=== PATIENT | male | born 1935 | race Caucasian/White ===

== ENCOUNTER 2018-02-23 06:01 | Day surgery (SDC) | payer MEDICARE, BC ==
[2018-02-22 11:50] LABS: BASOPHILS % (AUTO) 0.6 % (0-1); EOSINOPHILS # (AUTO) 0.1 X10'3 (0-0.9); EOSINOPHILS % (AUTO) 2.2 % (0-6); HEMOGLOBIN 12.8 g/dl (14.0-17.9); LYMPHOCYTES % (AUTO) 17.5 % (21-51); MEAN CORPUSCULAR HEMOGLOBIN 31.9 PG (27.0-31.0); MEAN CORPUSCULAR HGB CONC 34.6 % (33.0-36.5); MEAN CORPUSCULAR VOLUME 92.2 FL (78-98); MEAN PLATELET VOLUME 7.6 FL (7.4-10.4); MONOCYTES # (AUTO) 0.4 X10'3 (0-0.9); MONOCYTES % (AUTO) 6.9 % (2-12); NEUTROPHILS % (AUTO) 72.8 % (42-75); PLATELET COUNT 232 X10'3 (140-440); RED BLOOD COUNT 4.02 X10'6 (4.70-6.10); WHITE BLOOD COUNT 5.5 X10'3 (4.5-11.0)
[2018-02-22 11:59] LABS: ALBUMIN 3.3 G/DL (3.4-5.0); ANION GAP 8 (8-16); BLOOD UREA NITROGEN 49 MG/DL (7-18); BUN/CREATININE RATIO 34.8 (5.4-32.0); CALCIUM 9.4 MG/DL (8.5-10.1); CHLORIDE 109 MMOL/L (99-107); CREATININE 1.41 MG/DL (0.60-1.10); GLUCOSE 62 MG/DL (70-104); PARTIAL THROMBOPLASTIN TIME 26 SECONDS (22-32); PROTHROMBIN TIME 10.3 SECONDS (9.0-12.0); SODIUM 145 MMOL/L (135-145); TOTAL CARBON DIOXIDE 28.2 MMOL/L (24-32); eGFR 48 ML/MIN
[2018-02-23] VITALS (12 sets, daily range): BP systolic 105–157; BP diastolic 57–95
[~2018-02-23 06:01] MED LIST: AMLO5TAB16 PO; ASPI-1265 PO; ATRNS; CALC0.253 PO; CLOP75TA35 PO; ESOM40CA30 PO; EYE PO; GLIM2TAB2 PO; GLIM4TAB PO; HUM7525 SQ; Hydralazine Hcl PO; INSU100V12 SQ; LEVO75TA PO; LOSA25TA96 PO; OMEG1CAP2 PO; SODI15DR6 RIGHTEYE; [UNRECOGNIZED DRUG - OTHER] PO; calcium citrate PO
[2018-02-23] MEDS ORDERED: CLOP75TA15 PO (06:23)
[2018-02-23] MEDS ORDERED: ASPI-1264 PO (06:23)
[2018-02-23] MEDS ORDERED: GUAI600T45 PO (06:23)
[2018-02-23] MEDS ORDERED: MULT-1085 PO (06:23)
[2018-02-23] MEDS ORDERED: VIT1CAPS9 PO (06:23)
[2018-02-23] MEDS ORDERED: RANI150T44 PO (06:23)
[2018-02-23] MEDS ORDERED: diphenhydrAMINE 25mg capsule PO PRN (06:25)
[2018-02-23] MEDS ORDERED: LORazepam 0.5 MG tablet PO PRN (06:25)
[2018-02-23] MEDS ORDERED: normal saline 1000ml 1,000 ML IV SCH ×2 (06:25→06:35)
[2018-02-23] MEDS ORDERED: sod bicarbonate 150mEq in D5W 1,150 ML IV SCH (06:30)
[2018-02-23] MEDS ORDERED: iohexol 350 MG/ML 50ML vial IV ONE (07:47)
[2018-02-23] MEDS ORDERED: LIDOcaine 1% 30ml preserv. free vial ONE (07:47)
[2018-02-23] MEDS ORDERED: iohexol 350MG/ML 100ml bottle IV ONE (07:48)
[2018-02-23] MEDS ORDERED: heparin 1,000unit/ml 10ml vial 10 ML ONE (07:53)
[2018-02-23] MEDS ORDERED: nitroGLYCERIN-Tridil 50MG/D5W 250 ML IV ONE (07:53)
[2018-02-23] MEDS ORDERED: acetylcysteine 200 MG/ml 4ml vial PO SCH (08:00)
[2018-02-23] MEDS ORDERED: fentaNYL/PF 50MCG/1 ML 2ML syringe ONE (08:11)
[2018-02-23] MEDS ORDERED: midazolam 2 mg/2 ml injection ONE (08:12)
[2018-02-23] MEDS ORDERED: hydrALAZINE 20mg/ml inj. IV ONE (09:05)
[2018-02-23] MEDS ORDERED: furosemide 20 MG/2 ML vial IV ONE (09:50)
[2018-02-23] MEDS ORDERED: potassium Cl 20 mEq SR tablet PO ONE (09:50)
[2018-02-23] MEDS ORDERED: hydrALAZINE 20mg/ml inj. IV PRN (09:50)
[2018-02-23] MEDS: MORPHINE 2MG in 2ml NS syringe IV PRN ×2 (10:22→13:36)
[2018-02-23 17:06] LABS: ISTAT Hct MIX 34 %PCV (42-52); ISTAT O2 SATURATION MIX VENOUS 71 % (60-80); ISTAT SOURCE MIX
[2018-02-23 17:06] LABS: ISTAT HGB ART 11.6 g/dl (14.0-18.0); ISTAT Hct ART 34 %PCV (42-52); ISTAT O2 SATURATION ARTERIAL 99 % (95-98); ISTAT SOURCE ART
== END 2018-02-23 16:00 | disposition home or self-care (01) ==
LOC: SSTAY O 06:01
PROVIDERS: ATTEND Internal Medicine Cardiovascular Disease
DX: I25.10 Atherosclerotic heart disease of native coronary artery without angina pectoris (principal); E78.5 Hyperlipidemia, unspecified; E11.22 Type 2 diabetes mellitus with diabetic chronic kidney disease; I12.9 Hypertensive chronic kidney disease with stage 1 through stage 4 chronic kidney disease, or unspecified chronic kidney disease; N18.2 Chronic kidney disease, stage 2 (mild); I49.5 Sick sinus syndrome; E11.40 Type 2 diabetes mellitus with diabetic neuropathy, unspecified; I34.0 Nonrheumatic mitral (valve) insufficiency; I48.0 Paroxysmal atrial fibrillation; G47.33 Obstructive sleep apnea (adult) (pediatric); M19.90 Unspecified osteoarthritis, unspecified site; E03.9 Hypothyroidism, unspecified; K21.9 Gastro-esophageal reflux disease without esophagitis; F41.9 Anxiety disorder, unspecified; Z79.4 Long term (current) use of insulin; Z88.6 Allergy status to analgesic agent; Z88.1 Allergy status to other antibiotic agents; Z88.8 Allergy status to other drugs, medicaments and biological substances; Z98.42 Cataract extraction status, left eye; Z98.41 Cataract extraction status, right eye; Z85.820 Personal history of malignant melanoma of skin; Z96.651 Presence of right artificial knee joint; Z96.642 Presence of left artificial hip joint; Z96.612 Presence of left artificial shoulder joint; Z95.5 Presence of coronary angioplasty implant and graft; Z79.01 Long term (current) use of anticoagulants; Z79.82 Long term (current) use of aspirin; Z79.899 Other long term (current) drug therapy; Z98.890 Other specified postprocedural states
CPT/HCPCS: 36415; 80048; 82803; 82948; 85014; 85025; 85610; 85730; 93005; 93460; 99152; 99153; A6257; A6449; C1760; C1769; J0360; J1644; J1940; J2250; J2274; J3010; J3490; J7030; Q0163; Q9967; A4620

== ENCOUNTER 2020-08-21 06:13 | Day surgery (SDC) | payer MEDICARE, BC ==
[2020-08-20 12:58] LABS: ALBUMIN 3.6 G/DL (3.4-5.0); ANION GAP 11 (8-16); BLOOD UREA NITROGEN 38 MG/DL (7-18); CALCIUM 9.2 MG/DL (8.5-10.1); CHLORIDE 105 MMOL/L (99-107); CREATININE 1.31 MG/DL (0.60-1.10); GLUCOSE 181 MG/DL (70-104); SODIUM 142 MMOL/L (135-145); TOTAL CARBON DIOXIDE 26.1 MMOL/L (24-32); eGFR 52 ML/MIN
[2020-08-20 13:02] LABS: PARTIAL THROMBOPLASTIN TIME 25 SECONDS (22-32)
[2020-08-20 14:06] LABS: BASOPHILS % (AUTO) 0.8 % (0-1); EOSINOPHILS % (AUTO) 0 % (0-6); HEMATOCRIT 30.9 % (42.0-52.0); HEMOGLOBIN 10.2 g/dl (14.0-17.9); LYMPHOCYTES # (AUTO) 0.7 X10'3 (1.1-4.8); LYMPHOCYTES % (AUTO) 12.7 % (21-51); MEAN CORPUSCULAR HEMOGLOBIN 28.7 PG (27.0-31.0); MEAN CORPUSCULAR HGB CONC 32.8 g/dL (33.0-36.5); MEAN CORPUSCULAR VOLUME 87.4 FL (78-98); MEAN PLATELET VOLUME 7.7 FL (7.4-10.4); MONOCYTES # (AUTO) 0.4 X10'3 (0-0.9); MONOCYTES % (AUTO) 7.5 % (2-12); NEUTROPHILS # (AUTO) 4.1 X10'3 (1.8-7.7); PLATELET COUNT 241 X10'3 (140-440); RED BLOOD COUNT 3.54 X10'6 (4.70-6.10); RED CELL DISTRIBUTION WIDTH 13.6 % (11.5-14.5); WHITE BLOOD COUNT 5.1 X10'3 (4.5-11.0)
[~2020-08-21] VITALS: Ht 188 cm; Wt 73.2 kg
[2020-08-21] VITALS (13 sets, daily range): BP systolic 136–178; BP diastolic 55–78
[~2020-08-21 06:13] MED LIST changes: -AMLO5TAB16 PO; +ASPI-1264 PO; -ASPI-1265 PO; +CLOP75TA15 PO; -CLOP75TA35 PO; -ESOM40CA30 PO; -EYE PO; -GLIM2TAB2 PO; -GLIM4TAB PO; +GUAI600T45 PO; -Hydralazine Hcl PO; +MULT-1085 PO; +RANI-648 PO; +VIT1CAPS9 PO; -[UNRECOGNIZED DRUG - OTHER] PO; -calcium citrate PO
[2020-08-21] MEDS ORDERED: sodium bicarbonate (8.4%) inj. 150 MEQ in dextrose 5%-water 1,000 ML IV ONE (06:35)
[2020-08-21] MEDS ORDERED: diphenhydrAMINE 25mg capsule PO PRN (06:35)
[2020-08-21] MEDS ORDERED: normal saline 1,000 ML IV SCH (06:35)
[2020-08-21] MEDS ORDERED: LIDOcaine/PRILOcaine 5gm cream TP ONE (06:35)
[2020-08-21] MEDS ORDERED: LORazepam 0.5 MG tablet PO PRN (06:35)
[2020-08-21] MEDS ORDERED: ASPI-955 PO (07:20)
[2020-08-21] MEDS ORDERED: AREDS (07:20)
[2020-08-21] MEDS ORDERED: MAGN200T5 PO (07:20)
[2020-08-21] MEDS ORDERED: DIPH-915 PO (07:20)
[2020-08-21] MEDS ORDERED: ROSU5TAB PO (07:20)
[2020-08-21] MEDS ORDERED: WHEA98PO (07:20)
[2020-08-21] MEDS ORDERED: FAMO40TA58 PO (07:21)
[2020-08-21] MEDS ORDERED: HYDR-4069 PO (07:21)
[2020-08-21] MEDS ORDERED: fentaNYL/PF 50MCG/1 ML 2ML syringe ONE (07:38)
[2020-08-21] MEDS ORDERED: LIDOcaine 1% (10mg/ml)w/preservative injection 20ml MDV ONE (07:38)
[2020-08-21] MEDS ORDERED: heparin 1,000unit/ml 10ml vial 10 ML ONE (07:38)
[2020-08-21] MEDS: acetylcysteine 200 MG/ml 4ml vial PO PRN ×2 (07:38→16:08)
[2020-08-21] MEDS ORDERED: verapamil 2.5 mg/ml inj IV ONE (07:38)
[2020-08-21] MEDS ORDERED: iohexol 350MG/ML 100ml bottle IV ONE ×2 (07:38→08:37)
[2020-08-21] MEDS ORDERED: midazolam 2 mg/2 ml injection ONE (07:38)
[2020-08-21] MEDS ORDERED: heparin 1,000 UNITS/NS 500ml 500 ML ONE ×2 (07:38)
[2020-08-21] MEDS ORDERED: nitroGLYCERIN-Tridil 50MG/D5W 250 ML IV ONE (07:38)
[2020-08-21] MEDS ORDERED: iohexol 350 MG/ML 50ML vial IV ONE (07:38)
[2020-08-21] MEDS ORDERED: heparin 25,000 UNIT/250ml bag 250 ML IV ONE (08:36)
[2020-08-21] MEDS ORDERED: clopidogrel 300mg tablet ONE (09:24)
[2020-08-21] MEDS ORDERED: acetylcysteine 200 MG/ml 4ml vial PO ONE (09:55)
== END 2020-08-21 17:00 | disposition home or self-care (01) ==
LOC: SSTAY O 06:13
PROVIDERS: ATTEND Internal Medicine Cardiovascular Disease
DX: R94.39 Abnormal result of other cardiovascular function study (principal); T82.855A Stenosis of coronary artery stent, initial encounter; I25.10 Atherosclerotic heart disease of native coronary artery without angina pectoris; I48.0 Paroxysmal atrial fibrillation; E11.43 Type 2 diabetes mellitus with diabetic autonomic (poly)neuropathy; G47.30 Sleep apnea, unspecified; E11.22 Type 2 diabetes mellitus with diabetic chronic kidney disease; I12.9 Hypertensive chronic kidney disease with stage 1 through stage 4 chronic kidney disease, or unspecified chronic kidney disease; N18.2 Chronic kidney disease, stage 2 (mild); I35.8 Other nonrheumatic aortic valve disorders; I34.0 Nonrheumatic mitral (valve) insufficiency; I27.29 Other secondary pulmonary hypertension; E78.49 Other hyperlipidemia; Z79.899 Other long term (current) drug therapy; Z79.82 Long term (current) use of aspirin; Z95.5 Presence of coronary angioplasty implant and graft; Z87.891 Personal history of nicotine dependence; Z96.642 Presence of left artificial hip joint; Z96.612 Presence of left artificial shoulder joint; Z98.890 Other specified postprocedural states; Z88.8 Allergy status to other drugs, medicaments and biological substances; Z88.5 Allergy status to narcotic agent; Z82.49 Family history of ischemic heart disease and other diseases of the circulatory system; Z80.3 Family history of malignant neoplasm of breast; Y83.8 Other surgical procedures as the cause of abnormal reaction of the patient, or of later complication, without mention of misadventure at the time of the procedure; Y92.89 Other specified places as the place of occurrence of the external cause
CPT/HCPCS: 36415; 80048; 82948; 85025; 85347; 85610; 85730; 93005; 93458; 99152; 99153; C1725; C1751; C1769; C1874; C1894; C9600; J1644; J2001; J2250; J3010; J7030; Q0163; Q9967; A4620; A5120; J3490

== ENCOUNTER 2020-11-04 15:07 | Emergency (ER) | payer MEDICARE, BC ==
[~2020-11-04] VITALS: Ht 188 cm; Wt 71.4 kg
[~2020-11-04 15:07] MED LIST changes: +AREDS; -ASPI-1264 PO; +ASPI-955 PO; -ATRNS; -CALC0.253 PO; +DIPH-915 PO; +FAMO40TA58 PO; -GUAI600T45 PO; +HYDR-4069 PO; -LOSA25TA96 PO; +MAGN200T5 PO; -MULT-1085 PO; -RANI-648 PO; +ROSU5TAB PO; -VIT1CAPS9 PO; +WHEA98PO
[2020-11-04 16:00] LABS: BASOPHILS % (AUTO) 0.7 % (0-1); EOSINOPHILS % (AUTO) 0 % (0-6); HEMATOCRIT 31.6 % (42.0-52.0); HEMOGLOBIN 10.1 g/dl (14.0-17.9); LYMPHOCYTES # (AUTO) 0.7 X10'3 (1.1-4.8); LYMPHOCYTES % (AUTO) 14.7 % (21-51); MEAN CORPUSCULAR HEMOGLOBIN 25.9 PG (27.0-31.0); MEAN CORPUSCULAR HGB CONC 32.1 g/dL (33.0-36.5); MEAN CORPUSCULAR VOLUME 80.7 FL (78-98); MEAN PLATELET VOLUME 7.5 FL (7.4-10.4); MONOCYTES # (AUTO) 0.3 X10'3 (0-0.9); MONOCYTES % (AUTO) 6.6 % (2-12); NEUTROPHILS # (AUTO) 3.8 X10'3 (1.8-7.7); PLATELET COUNT 204 X10'3 (140-440); RED BLOOD COUNT 3.91 X10'6 (4.70-6.10); RED CELL DISTRIBUTION WIDTH 18.2 % (11.5-14.5); WHITE BLOOD COUNT 4.8 X10'3 (4.5-11.0)
[2020-11-04 16:07] LABS: D-DIMER 0.94 MG/L FEU (0-0.50)
[2020-11-04 16:10] LABS: ALANINE AMINOTRANSFERASE 35 U/L (12-78); ALBUMIN 3.6 G/DL (3.4-5.0); ALBUMIN/GLOBULIN RATIO 1.2 (1.1-1.5); ALKALINE PHOSPHATASE 99 IU/L (46-116); ANION GAP 1 (8-16); ASPARTATE AMINO TRANSFERASE 34 U/L (10-37); BILIRUBIN,TOTAL 0.5 MG/DL (0.1-1.0); BLOOD UREA NITROGEN 35 MG/DL (7-18); BUN/CREATININE RATIO 34.7 (5.4-32.0); CALCIUM 9.2 MG/DL (8.5-10.1); CHLORIDE 108 MMOL/L (99-107); CREATININE 1.01 MG/DL (0.60-1.10); GLUCOSE 75 MG/DL (70-104); POTASSIUM 3.7 MMOL/L (3.5-5.1); SODIUM 138 MMOL/L (135-145); TOTAL CARBON DIOXIDE 28.8 MMOL/L (24-32); TOTAL PROTEIN 6.6 G/DL (6.4-8.2); eGFR 70 ML/MIN
[2020-11-04] MEDS ORDERED: nitroGLYCERIN 0.4mg SUBLingual tab SL PRN (17:20)
[2020-11-04] MEDS ORDERED: furosemide 20MG tablet PO ONE (17:20)
--- NOTE | 2020-11-04 17:45 | NUR ---
AFTER LOW SUGAR THE PT WAS GIVEN A SANDWICH AND ORANGE JUICE. FEELING BETTER
[2020-11-04 17:46] VITALS: BP 178/74
== END 2020-11-04 17:49 | disposition home or self-care (01) ==
LOC: ER 15:08
DX: I10 Essential (primary) hypertension (principal); I50.9 Heart failure, unspecified; Z20.828 Contact with and (suspected) exposure to other viral communicable diseases; R00.0 Tachycardia, unspecified; R53.1 Weakness; R06.02 Shortness of breath; I48.91 Unspecified atrial fibrillation; E11.9 Type 2 diabetes mellitus without complications; Z88.1 Allergy status to other antibiotic agents; Z88.8 Allergy status to other drugs, medicaments and biological substances; Z88.6 Allergy status to analgesic agent; Z79.82 Long term (current) use of aspirin; Z79.4 Long term (current) use of insulin; Z79.899 Other long term (current) drug therapy
CPT/HCPCS: 36415; 71045; 80053; 82948; 83880; 84484; 85025; 85379; 86885; 86900; 86901; 87635; 93005; 99285; C9803